=== PATIENT | male | born 1975 | race Two or more races ===

== ENCOUNTER 2017-11-12 08:31 | Emergency (ER) | payer OTHER ==
[~2017-11-12] VITALS: Ht 170.2 cm; Wt 83.9 kg
== END 2017-11-12 18:42 | disposition home or self-care (01) ==
LOC: ER 08:31
DX: B34.9 Viral infection, unspecified (principal)

== ENCOUNTER 2020-08-14 09:36 | Emergency (ER) | payer OTHER ==
[~2020-08-14] VITALS: Ht 170.2 cm; Wt 89.8 kg
[2020-08-14] MEDS ORDERED: CRESTOR5 MG (11:50)
[2020-08-14] MEDS ORDERED: LOTREL 5-10 MG1 CAP (11:50)
[2020-08-14] MEDS ORDERED: ORPHENADRINE C100 MG PO (14:12)
[2020-08-14] MEDS ORDERED: KETO10TA2 PO (14:12)
== END 2020-08-14 14:10 | disposition home or self-care (01) ==
LOC: ER 09:36
DX: M79.671 Pain in right foot (principal); M25.571 Pain in right ankle and joints of right foot

== ENCOUNTER 2020-12-25 11:59 | Emergency (ER) | payer OTHER ==
[~2020-12-25] VITALS: Ht 170.2 cm; Wt 89.8 kg
[~2020-12-25 11:59] MED LIST: CRESTOR5 MG; KETO10TA2 PO; LOTREL 5-10 MG1 CAP; ORPHENADRINE C100 MG PO
[2020-12-25] MEDS ORDERED: DOXAZOSIN MESYLA2 MG (12:27)
[2020-12-25] MEDS ORDERED: AVAPRO75 MG (12:28)
[2020-12-25] MEDS ORDERED: ROSUVASTATIN CA20 MG (12:28)
[2020-12-25] MEDS ORDERED: TAMS0.4C PO (17:27)
== END 2020-12-25 17:38 | disposition home or self-care (01) ==
LOC: ER 11:59
DX: N20.0 Calculus of kidney (principal)

== ENCOUNTER 2021-02-12 10:56 | Emergency (ER) | payer OTHER ==
[~2021-02-12] VITALS: Ht 170.2 cm; Wt 88.5 kg
[~2021-02-12 10:56] MED LIST changes: +AVAPRO75 MG; +DOXAZOSIN MESYLA2 MG; +ROSUVASTATIN CA20 MG; +TAMS0.4C PO
[2021-02-12] MEDS ORDERED: OMEGA-3 ACID ETH1 GM PO (11:22)
[2021-02-12] MEDS ORDERED: IRBESARTAN150 MG PO (11:22)
== END 2021-02-12 13:51 | disposition home or self-care (01) ==
LOC: ER 10:56
DX: B34.9 Viral infection, unspecified (principal); Z20.822 Contact with and (suspected) exposure to COVID-19